=== PATIENT | female | born 1995 | race Caucasian/White ===

== ENCOUNTER 2019-10-05 21:50 | Inpatient (IN) ==
[2019-10-05] MEDS ORDERED: ONDANSETRON 4 MG/2 ML VIAL IV PRN (21:55)
[2019-10-05] MEDS ORDERED: LACTATED RINGERS 1,000 ML IV ONE (21:55)
[2019-10-05] MEDS ORDERED: LACTATED RINGERS 1,000 ML IV SCH (22:00)
[2019-10-05 22:23] LABS: Basophils % 0.2 % (0.0-0.8); Eosinophils # 0.2 10*3/uL (0.0-0.87); Eosinophils % 1.8 % (0.00-10.9); Hematocrit 35.1 VOL% (35.7-47.0); Hemoglobin 11.4 GM/DL (12.0-16.0); Immature Granulocytes % 0.7 %; Immature Granulocytes Absolute 0.08 #; Lymphocytes # 2.5 10*3/uL (1.4-4.0); Lymphocytes % 20.8 % (21.3-54.2); Mean Corpuscular HGB Conc 32.5 GM/DL (32-36); Mean Corpuscular Volume 88.2 FL (87-102); Mean Platelet Volume 10.3 FL (9.6-12.0); Monocytes % 7.6 % (1.7-12.7); Neutrophils % 68.9 % (38.7-73.9); Platelet Count 245 T/CUMM (130-400); Red Blood Count 3.98 MC/CUMM (3.8-5.5); Red Cell Distribution Width 13.3 % (9.3-17.3); White Blood Count 11.8 T/CUMM (4-12)
[2019-10-05 22:46] LABS: Alanine Aminotransferase 16 U/L (13-56); Albumin 2.6 G/DL (3.4-5.0); Alkaline Phosphatase 113 U/L (45-117); Aspartate Amino Transferase 16 U/L (0-37); Bilirubin,Total < 0.39 MG/DL (0.2-1.0); Blood Urea Nitrogen 10 MG/DL (7-18); Calcium 8.4 MG/DL (8.5-10.1); Estimated Glom Filtration Rate 151 ML/MIN; Glucose 98 MG/DL (74-106); Total Protein 6.9 G/DL (6.4-8.3)
[2019-10-06] MEDS ORDERED: LACTATED RINGERS 1,000 ML IV ONE (07:20)
[2019-10-06] MEDS ORDERED: CITRIC ACID/SODIUM CITRATE 30 ML UDCUP PO ONE (07:20)
[2019-10-06] MEDS ORDERED: FAMOTIDINE 20 MG/2 ML VIAL IV ONE (07:20)
[2019-10-06] MEDS ORDERED: diphenhydrAMINE 50 MG/1 ML VIAL IV PRN ×2 (07:21)
[2019-10-06] MEDS ORDERED: ePHEDrine 50 MG/ML AMP IV PRN (07:21)
[2019-10-06] MEDS ORDERED: NALOXONE 0.4 MG/ML VIAL IV PRN (07:21)
[2019-10-06] MEDS ORDERED: LACTATED RINGERS 250 ML IV PRN (07:21)
[2019-10-06] MEDS ORDERED: PROMETHAZINE 25 MG/1 ML VIAL IM ONE (07:21)
[2019-10-06] MEDS ORDERED: hydrOXYzine HCL 25 MG/1 ML VIAL IM PRN (07:21)
[2019-10-06] MEDS ORDERED: fentaNYL 2 MCG/ROPIV 0.2% EPID 100 ML EPIDURAL SCH (07:30)
[2019-10-06] MEDS ORDERED: OXYTOCIN/LR 20 UNIT/1,000 ML BAG IV SCH (09:30)
[2019-10-06 11:01] LABS: Apearance,Urine CLEAR (Clear); Bilirubin,Urine Negative (Negative); Blood, Urine Negative (Negative); Glucose,Urine (UA) Negative (Negative); Ketones,Urine 5 mg/dL (Negative); Mucus,Urine Occasional /LPF (Occasional); Nitrite,Urine Negative (Negative); Protein,Urine Negative; RBC,Urine 1 /HPF (0-4); Squamous Epithelial Cell,Urine Occasional /HPF (0-10); Urine Color Yellow (Yellow); Urine Specific Gravity 1.021 (1.001-1.035); WBC,Urine <1 /HPF (0-6)
[2019-10-06] MEDS ORDERED: OXYTOCIN/LR 20 UNIT/1,000 ML BAG IV ONE ×2 (13:26→18:27)
[2019-10-06] MEDS ORDERED: TRANEXAMIC ACID 1,000 MG/10 ML VIAL ONE (13:26)
[2019-10-06] MEDS ORDERED: miSOPROStoL 200 MCG TABLET ONE (13:26)
[2019-10-06] MEDS ORDERED: CARBOPROST TROMETHAMINE 250 MCG/ML AMP IM ONE (13:27)
[2019-10-06] MEDS ORDERED: METHYLERGONOVINE 0.2 MG/1 ML AMP ONE (13:27)
[2019-10-06] MEDS ORDERED: LIDOCAINE 1% 50 ML VIAL ONE (13:27)
[2019-10-06] MEDS ORDERED: MEPERIDINE 50 MG/1 ML VIAL ONE (13:28)
[2019-10-06] MEDS ORDERED: DIPH/TET/ACEL PERT BOOSTER VACCINE 0.5 ML VIAL IM ONE (18:27)
[2019-10-06] MEDS ORDERED: oxyCODONE/ACETAMINOPHEN 5-325 MG TABLET PO PRN ×3 (18:27)
[2019-10-06] MEDS ORDERED: MEASLES/MUMPS/RUBELLA VACCINE 0.5 ML VIAL SUBCUT ONE (18:27)
[2019-10-06] MEDS ORDERED: ONDANSETRON 4 MG/2 ML VIAL IV PRN (18:27)
[2019-10-06] MEDS ORDERED: LANOLIN 50% CREAM 0.3 OZ TUBE TOP PRN (18:27)
[2019-10-06] MEDS ORDERED: WITCH HAZEL PADS 100/JAR TOP PRN (18:27)
[2019-10-06] MEDS ORDERED: HYDROCORTISONE 2.5% RECTAL CREAM 30 GM TUBE TOP PRN (18:27)
[2019-10-06] MEDS ORDERED: RHO(D) IMMUNE GLOBULIN 300 MCG SYRINGE IM ONE (18:27)
[2019-10-06] MEDS ORDERED: ACETAMINOPHEN 325 MG TABLET PO PRN (18:27)
[2019-10-06] MEDS ORDERED: BISACODYL 10 MG SUPP RECTAL PRN (18:27)
[2019-10-06] MEDS ORDERED: BENZOCAINE 20%/MENTHOL 0.5% SPRAY 56 GM CAN TOP PRN (18:28)
[2019-10-06] MEDS: BENZOCAINE 20%/MENTHOL 0.5% SPRAY 56 GM CAN TOP PRN (18:45)
[2019-10-06] MEDS: IBUPROFEN 800 MG TABLET PO PRN (19:54)
[2019-10-06] MEDS: DOCUSATE SODIUM 100 MG CAPSULE PO SCH (21:30)
[2019-10-07] MEDS: IBUPROFEN 800 MG TABLET PO PRN ×4 (01:31→20:17)
[2019-10-07 07:12] LABS: Basophils % 0.2 % (0.0-0.8); Eosinophils # 0.1 10*3/uL (0.0-0.87); Eosinophils % 0.7 % (0.00-10.9); Hematocrit 27.8 VOL% (35.7-47.0); Hemoglobin 8.8 GM/DL (12.0-16.0); Immature Granulocytes % 0.7 %; Immature Granulocytes Absolute 0.13 #; Lymphocytes # 2.5 10*3/uL (1.4-4.0); Lymphocytes % 13.3 % (21.3-54.2); Mean Corpuscular HGB Conc 31.7 GM/DL (32-36); Mean Corpuscular Volume 89.4 FL (87-102); Monocytes % 7.2 % (1.7-12.7); Neutrophils % 77.9 % (38.7-73.9); Platelet Count 232 T/CUMM (130-400); Red Blood Count 3.11 MC/CUMM (3.8-5.5); Red Cell Distribution Width 13.4 % (9.3-17.3); White Blood Count 18.7 T/CUMM (4-12)
[2019-10-07] MEDS: DOCUSATE SODIUM 100 MG CAPSULE PO SCH ×2 (08:43→20:17)
[2019-10-07] MEDS: FERROUS SULFATE 325 MG TABLET PO SCH ×2 (08:43→20:17)
[2019-10-07] MEDS: BENZOCAINE 20%/MENTHOL 0.5% SPRAY 56 GM CAN TOP PRN (15:01)
[2019-10-08 07:15] VITALS: BP 113/54
[2019-10-08] MEDS: DOCUSATE SODIUM 100 MG CAPSULE PO SCH (08:42)
[2019-10-08] MEDS: FERROUS SULFATE 325 MG TABLET PO SCH (08:42)
== END 2019-10-08 12:50 | disposition home or self-care (01) | DRG 768 ==
LOC: N.LDOUT 21:50 → N.LD 21:52 → N.OB 10-06 18:25
PROVIDERS: ADMIT Specialist; ATTEND Specialist